=== PATIENT | male | born 1985 | race Caucasian/White ===

== ENCOUNTER → 2021-10-31 | Outpatient (CLI) | payer OTHER ==
[~2021-10-31] MED LIST: OMEPRAZOLE20 MG PO
[2021-10-31 18:27] LABS: HEMOGLOBIN 14.2 gm/dl (14.0-17.5); RED BLOOD COUNT 4.68 M/UL (4.20-5.50); WHITE BLOOD COUNT 8.5 K/UL (4.5-11.0)
[2021-10-31 18:57] LABS: BUN/CREATININE RATIO 10 (0-10)
== END ==
LOC: LAB 17:37
PROVIDERS: Nurse Practitioner Family
DX: R35.0 Frequency of micturition (principal); R53.83 Other fatigue; Z13.220 Encounter for screening for lipoid disorders
CPT/HCPCS: 36415; 80053; 80061; 81001; 83036; 84443; 85025

== ENCOUNTER → 2022-05-08 | Outpatient (CLI) | payer OTHER | LOC: EXRD 05-04 11:30 | DX: N50.819 Testicular pain, unspecified (principal); N43.3 Hydrocele, unspecified | CPT/HCPCS: 76870 ==